=== PATIENT | male | born 1935 | race Caucasian/White ===

== ENCOUNTER 2022-09-10 05:04 | Emergency (ER) | payer MEDICARE, OTHER ==
[2022-09-10] MEDS ORDERED: Tranexamic Acid 1,000 MG/10 ML Vial TOP STA (06:04)
[2022-09-10] MEDS ORDERED: Lidocaine 2% with EPINEPHrine 1:100,000 20 ML MDV INJECT ONE (10:02)
[2022-09-10] MEDS ORDERED: cefTRIAXone 1 GM, Lidocaine 1% 2.1 ML IM ONE ×2 (10:22)
[2022-09-10] MEDS ORDERED: Lidocaine 2% with EPINEPHrine 1:200,000 20 ML SDV INJECT ONE (10:30)
== END 2022-09-10 11:57 | disposition home or self-care (01) ==
LOC: JD.ED 05:04
DX: L76.22 Postprocedural hemorrhage of skin and subcutaneous tissue following other procedure (principal); I10 Essential (primary) hypertension; I25.2 Old myocardial infarction; I25.10 Atherosclerotic heart disease of native coronary artery without angina pectoris; Z87.891 Personal history of nicotine dependence; Z95.1 Presence of aortocoronary bypass graft; Z86.16 Personal history of COVID-19
CPT/HCPCS: 96372; 99283; J0696; J3490

== ENCOUNTER 2022-10-01 12:33 | Emergency (ER) | payer MEDICARE, OTHER ==
[2022-10-01] MEDS ORDERED: Acetaminophen 325 MG Tab PO ONE (13:43)
== END 2022-10-01 14:52 | disposition home or self-care (01) ==
LOC: JD.ED 12:33
DX: S02.2XXA Fracture of nasal bones, initial encounter for closed fracture (principal); I25.10 Atherosclerotic heart disease of native coronary artery without angina pectoris; I10 Essential (primary) hypertension; I25.2 Old myocardial infarction; Z86.16 Personal history of COVID-19; Z79.899 Other long term (current) drug therapy; Z87.891 Personal history of nicotine dependence; Z79.01 Long term (current) use of anticoagulants; W19.XXXA Unspecified fall, initial encounter; Y92.096 Garden or yard of other non-institutional residence as the place of occurrence of the external cause
CPT/HCPCS: 70450; 70450-26; 72125; 72125-26; 99283; 99284